=== PATIENT | female | born 1990 | race Caucasian/White ===

== ENCOUNTER → 2020-02-26 11:12 | Outpatient (CLI) | payer BC, SELFPAY ==
[2020-02-27 08:37] LABS: Strep Grp B PCR NEG for Grp B Strep
== END ==
PROVIDERS: PCP Family Medicine; Visit Provider Family Medicine
DX: Z34.90 Encounter for supervision of normal pregnancy, unspecified, unspecified trimester (principal); Z3A.36 36 weeks gestation of pregnancy
CPT/HCPCS: 87653

== ENCOUNTER → 2020-03-02 11:37 | Outpatient (CLI) | payer BC, SELFPAY ==
--- NOTE | 2020-03-02 11:42 | DI.US.S_ITS ---
PROCEDURE: US OB LIMITED INDICATIONS: growth scan, size << dates OUTSIDE/PRIOR DATING DATA: Last menstrual period (LMP): 06/20/2019. LMP-based estimated date of delivery (SE): 03/26/2020. First dating scan (date and location): 03/02/2020. Estimated date of delivery (SE) from first dating scan: 03/29/2020. TECHNIQUE: Real-time scanning was performed of the fetus, with image documentation and biometric measurements. Endovaginal scanning: Not performed COMPARISON: None. FINDINGS: General: A single living intrauterine gestation is present. Presentation: Vertex Placenta: Placental position is anterior, without previa. Amniotic fluid index: 15.7 cm, normal range is 5-24 cm. heart rate: 139 beats per minute. Maternal cervical canal: 3.3 cm long. Normal lower limit is 2.5 cm. biometrics: Biparietal diameter: 8.93 centimeters, 36 weeks, 1 day Head circumference: 32.37 cm, 36 weeks, 4 days Abdominal circumference: 29.8 cm, 33 weeks, 6 days Femur length: 7.4 cm, 37 weeks, 6 days Estimated gestational age from initial scan: 36 weeks, 1 day Composite gestational age from present scan: 36 weeks, 1 day Estimated weight and percentile: 2695 grams, 26 percent. Measurement variability for biometric dating: +/- 7 days from 14 weeks to 15 weeks 6 days gestation, +/- 10 days from 16 weeks to 21 weeks 6 days gestation, +/- 2 weeks from 22 weeks to 27 weeks 6 days gestation, +/- 3 weeks for 28 weeks gestation or later. weight reference: 4500 g or EFW >90/95% is considered macrosomia or large for gestational age. EFW <10% is small for gestational age. EFW 5% or less is considered intra-uterine growth restriction. Other: Not applicable. IMPRESSION: 1. Single live intrauterine with fetus in vertex presentation. heart rate is 139 beats per minute. Normal amount of amniotic fluid. Normal cervical length. 2. Estimated gestational age is 36 weeks, 1 day. Normal growth. Dictated by: Osiel Ball M.D. on 03/02/2020 at 15:06 Approved by: Osiel Ball M.D. on 03/02/2020 at 15:08
== END ==
PROVIDERS: PCP Family Medicine; Referring Provider Family Medicine; Visit Provider Family Medicine
DX: O26.843 Uterine size-date discrepancy, third trimester (principal); Z3A.36 36 weeks gestation of pregnancy
CPT/HCPCS: 76815

== ENCOUNTER 2020-03-31 07:22 | Inpatient (IN) | payer BC, SELFPAY ==
[2020-03-31 08:13] LABS: Add Manual Diff / Slide Review NO; Basophils Absolute Auto 0 /uL (0-100); Basophils Percent Auto 0.1 % (0-2); Eosinophils Absolute Auto 0 /uL (0-450); Eosinophils Percent Auto 0.1 % (2-4); Hematocrit 40.7 % (36-46); Hemoglobin 13.4 g/dL (12.0-16.0); Lymphocytes Absolute Auto 2100 /uL (1100-4500); Lymphocytes Percent Auto 10.6 % (25-40); Mean Corpuscular Hemoglobin 29.9 PG (26-34); Mean Corpuscular Volume 90.6 fL (80-100); Monocytes Absolute Auto 900 /uL (0-900); Monocytes Percent Auto 4.5 % (3-14); Neutrophils Absolute Auto 17000 /uL (1500-7000); Neutrophils Percent Auto 84.7 % (50-75); Platelet Count 177 X10^3/uL (150-400); Red Blood Cell Count 4.49 X10^6/uL (4.0-5.2); Red Cell Distribution Width 14.1 % (11.6-14.8); White Blood Cell Count 20.1 X10^3/uL (4.5-11.0)
[2020-03-31] MEDS: OXYTOCIN 10 UNIT/ML VIAL 20 UNIT (08:20)
--- NOTE | 2020-03-31 09:31 | P.HPOB_ITS ---
OB HPI Date/Time Date of admission: 03/31/20 Date Patient Seen: 03/31/20 Time Patient Seen: 07:45 History of Present Condition Chief complaint: Labor & Delivery : 2 Para: 1 Estimated Date of Delivery: 03/26/20 Estimated Gestational Age (weeks): 49w5d Narrative: Keyanna Winslow is a 30 year old at 40w5d who presented with regular painful contractions. Pt reports contractions started around 2am, increasing in frequency and intensity since then. She denies any LOF or significant vaginal bleeding. She has been feeling the baby move regularly. History of Present care: good care, initiated at week # (9) and pounds weight gain (39) Dating criteria: LMP confirmed by 1st trimester US Ultrasounds: normal 1st trimester US and normal mid trimester US Obstetrical complications: none Medical complications: none Preadmission Labs Blood type: A (+) positive -: Antibody screen: negative, GBS status: negative, HBsAG: negative, HIV: negative and RPR/VDLR: negative -: Rubella: immune HCT: 39.6 PAP: Normal 1 hr GTT: 87 Prior (ies) History: 04/15/17 - at 39w6d, 7lb0.6oz male, Ethan Evaluation Evaluation Baseline heart rate: 120 Variability: Moderate (11-25) monitor accelerations: Present monitor decelerations: Absent Contraction Frequency (minutes): 3 Uterine Contraction Intensity: Strong/Firm Cervical dilation (cm): 10 Cervical effacement (%): 100 station: -1 Laboratory results: Laboratory Tests 03/31/20 03/31/20 07:30 07:30 WBC 20.1 H RBC 4.49 Hgb 13.4 Hct 40.7 MCV 90.6 MCH 29.9 MCHC 33.0 RDW 14.1 Plt Count 177 Neut % (Auto) 84.7 H Lymph % (Auto) 10.6 L [place] % (Auto) 4.5 Eos % (Auto) 0.1 L Baso % (Auto) 0.1 Neut # (Auto) 24372 H Lymph # (Auto) 2100 [place] # (Auto) 900 Eos # (Auto) 0 Baso # (Auto) 0 Blood Type A Positive Antibody Screen Negative Comments: AROM performed with production of clear fluid. [facility] Medical History (Updated 02/18/20 @ 14:02 by Kristina Chavez RN) (spontaneous vaginal delivery) (Acute ~04/15/17) Surgical History (Updated 02/18/20 @ 16:33 by Kristina Chavez RN) [place] teeth extracted (Acute ~2005) Family History (Updated 02/18/20 @ 14:25 by Kristina Chavez RN) Mother Hypertension Father No problems noted. Grandmother No problems noted. Grandfather Dementia Grandmother Hypertension Grandfather No problems noted. Sister No problems noted. 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 ) occupational status: unemployed (since move back to [facility] from [place]) current occupational exposures/hazards: Yes special robbie needs: No Smoking Status: Never smoker second hand exposure: No alcohol intake: former (pre- : X 2 standard drinks/week) substance use type: does not use Meds Home Medications and Allergies Home Medications Medication Instructions Recorded Confirmed Type prenat.vits,scottie,msf-elik-qpgvf 1 tab PO DAILY 02/18/20 02/18/20 History Allergies Allergy/AdvReac Type Severity Reaction Status Date / Time amoxicillin Allergy Intermediate Hives : Verified 02/18/20 14:14 Patient was a baby - Unknownother reaction Exam Narrative Exam Narrative: Gen: NAD, uncomfortable with contractions in bed CV: RRR, no murmurs Resp: clear to auscultation bilaterally Abd: soft, gravid, nondistended, nontender Ext: no edema Objective Labs Result Diagrams: 03/31/20 07:30 Labs: Laboratory Results - last 24 hr 03/31/20 03/31/20 07:30 07:30 WBC 20.1 H RBC 4.49 Hgb 13.4 Hct 40.7 MCV 90.6 MCH 29.9 MCHC 33.0 RDW 14.1 Plt Count 177 Neut % (Auto) 84.7 H Lymph % (Auto) 10.6 L [place] % (Auto) 4.5 Eos % (Auto) 0.1 L Baso % (Auto) 0.1 Neut # (Auto) 54159 H Lymph # (Auto) 2100 [place] # (Auto) 900 Eos # (Auto) 0 Baso # (Auto) 0 Blood Type A Positive Antibody Screen Negative Assessment and Plan Assessment and Plan Assessment and Plan narrative: 30yo at 40w5d presenting in active labor. Rh positive, GBS negative. - Expectant management, anticipate - GBS negative, no prophylaxis indicated - FHT reassuring - Natural methods for pain control
--- NOTE | 2020-03-31 09:31 | PM.OBPRVD ---
Labor & Delivery Delivery date: 03/31/20 Estimated blood loss (mL): 250 Anesthesia type: None Complications: None Narrative: PROCEDURE: at 40w5d presented in active labor and was admitted to Labor and Delivery. The patient progressed through the 1st stage over 5.5 hours. Pain was controlled with natural methods. AROM was performed when the pt was fully dilated with production of clear fluid. The patient progressed through the 2nd stage over 34 minutes and delivered a viable female with APGARs 9/9 at 8:14 via without complications. The cord was clamped and cut after it stopped pulsating. The perineum and vagina were inspected with 2nd degree perineal laceration repaired with 3-O Chromic. PREPROCEDURE DIAGNOSIS: Intrauterine at 40w5d GBS negative RH positive POSTPROCEDURE DIAGNOSIS: Intrauterine at 40w5d, delivered Same as preprocedure PROCEDURE: Spontaneous vaginal delivery INDUCTION: No LABOR AUGMENTATION: AROM ROM APPEARANCE: Clear BABY A DELIVERY TIME: 8:14 BABY A OUTCOME: Viable BABY A SEX: Male BABY A WEIGHT: 7lb5.3oz BABY A PRESENTATION: Vertex BABY A POSITION: OA BABY A NUCHAL CORD: None BABY A # CORD VESSELS: 3 BABY A CORD GASES OBTAINED: No PLACENTA DELIVERY TIME: 8:20 PLACENTAL DELIVERY TYPE: Spontaneous PLACENTA APPEARANCE: Intact Baby 1: Infant gender: Female score (1 min): 9 score (5 min): 9 Plan for aftercare: Normal care
[2020-03-31] MEDS: IBUPROFEN 600 MG TABLET PO ×3 (10:39→22:14)
[2020-03-31] MEDS: ACETAMINOPHEN 325 MG TABLET 650 MG PO ×2 (10:39→17:05)
[2020-03-31 11:15] VITALS: BP 120/76
[2020-03-31 14:34] LABS: COVID19 -Nasal RAPID Negative (Negative)
[2020-03-31] MEDS: DERMOPLAST SPRAY 20% 60 ML 1 SPRAY TOP (17:05)
[2020-04-01] MEDS: IBUPROFEN 600 MG TABLET PO ×2 (05:06→12:40)
--- NOTE | 2020-04-01 11:05 | PM.OBDS.1 ---
Discharge Providers Provider Date of admission: 03/31/20 07:22 Discharge Date: 04/01/20 Primary care physician: Jolie Villalta MD Consults: 04/01/20 09:30 Consult to Component Assembler Routine Comment: Discharge provider: Jolie Villalta MD Summary Hospital Course Date Patient Seen: 04/01/20 Time Patient Seen: 11:05 Procedures: Spontaneous vaginal delivery Hospital Course: The patient presented in active labor. She arrived fully dilated. She had a spontaneous vaginal delivery of a viable baby girl at 8:14 a.m. on 03/31/2020. A second-degree laceration was then repaired. She had no complications with delivery. , there were no complications. At the time of discharge he was voiding, ambulating, passing flatus without difficulty. Her lochia was decreasing appropriately. She was breast-feeding with good latch. Her pain was adequately controlled with ibuprofen. She will follow up in clinic for her 6 week check. She would like an IUD for contraception. Peripartum Data Infant Delivery Method: Natural Vaginal Laceration Description: Perineal - 2nd Degree Episiotomy description: None Procedures: Spontaneous vaginal delivery complications: none Moodus 1: Gender: Female Disposition of : home Status at Discharge Cognitive/behavioral status at discharge: oriented Functional status at discharge: independent ambulation Overall status at discharge: patient is progressing back to baseline Time Spent with Patient Time attestation: Total time spent providing and/or coordinating discharge services: Objective Labs Result Diagrams: 03/31/20 07:30 Labs: Laboratory Results - last 24 hr 03/31/20 10:37 COVID-19 PCR Negative Exam Narrative Exam Narrative: General: No acute distress, sitting comfortably in bed, appears well CV: Regular rate and rhythm, no murmurs Respiratory: Clear to auscultation bilaterally Abdomen: Soft, nondistended, normoactive bowel sounds, fundus firm at the umbilicus Extremities: No edema Discharge Plan Discharge Plan Patient Disposition: Home Discharge orders & Medications Prescriptions: Continued prenat.vits,scottie,dpm-xaaw-kdfuk Tablet 1 tab PO DAILY RF: 0 Follow up/Referrals: Jolie Villalta MD [Primary Care Provider] - 6 Weeks Diet/Activity/Treatments Diet: Diet as Tolerated and Regular Skin/Wound/Dressing Care Report to your healthcare provider any signs of infection, such as:: chills, fever, increased pain and unusual drainage Visit Report/Discharge Packet Instructions: DI for Labor and Delivery, Vaginal Visit Report Forms: Patient Portal/API, Stroke Signs & Symptoms Discharge Data Primary Care Provider: Jolie Villalta
[2020-04-01 11:54] VITALS: BP 118/76; PULSE 87; RESP 14; TEMP 37.2
== END 2020-04-01 14:06 | disposition home or self-care (01) | DRG 807 ==
PROVIDERS: Admitting Provider Family Medicine; PCP Family Medicine; Referring Provider Family Medicine; Visit Provider Family Medicine
DX: O70.1 Second degree perineal laceration during delivery (principal); Z37.0 Single live birth; Z3A.40 40 weeks gestation of pregnancy; Z11.59 Encounter for screening for other viral diseases
CPT/HCPCS: 59050; 59410; 85025; 86850; 86900; 86901; 87635; G0379; J2590

== ENCOUNTER → 2021-10-12 16:11 | Outpatient (CLI) | payer OTHER, SELFPAY ==
[2021-10-12 18:56] LABS: Urine N gonorrhoeae NOT DETECTED
[2021-10-12 19:27] LABS: Urine Chlamydia NOT DETECTED
== END ==
PROVIDERS: PCP Family Medicine; Visit Provider Family Medicine
DX: Z30.430 Encounter for insertion of intrauterine contraceptive device (principal)
CPT/HCPCS: 87491; 87591

== ENCOUNTER → 2024-11-18 13:25 | Outpatient (CLI) | payer OTHER, SELFPAY ==
[2024-11-18 15:02] LABS: HCG Quantitative /Beta subunit 61621 mIU/mL
== END ==
PROVIDERS: PCP Family Medicine; Referring Provider Family Medicine; Visit Provider Family Medicine
DX: Z34.90 Encounter for supervision of normal pregnancy, unspecified, unspecified trimester (principal)
CPT/HCPCS: 36415; 84702

== ENCOUNTER → 2024-11-20 12:17 | Outpatient (CLI) | payer OTHER, SELFPAY ==
[2024-11-20 14:02] LABS: HCG Quantitative /Beta subunit 52651 mIU/mL
== END ==
PROVIDERS: PCP Family Medicine; Referring Provider Family Medicine; Visit Provider Family Medicine
DX: Z32.00 Encounter for pregnancy test, result unknown (principal)
CPT/HCPCS: 36415; 84702

== ENCOUNTER → 2024-11-26 12:39 | Outpatient (CLI) | payer OTHER, SELFPAY ==
[2024-11-26 15:54] LABS: HCG Quantitative /Beta subunit 33451 mIU/mL
== END ==
PROVIDERS: PCP Family Medicine; Referring Provider Family Medicine; Visit Provider Family Medicine
DX: Z32.00 Encounter for pregnancy test, result unknown (principal)
CPT/HCPCS: 36415; 84702

== ENCOUNTER → 2024-12-12 09:30 | Outpatient (CLI) | payer OTHER, SELFPAY ==
[2024-12-12 10:40] LABS: HCG Quantitative /Beta subunit 6517.1 mIU/mL
== END ==
PROVIDERS: PCP Family Medicine; Referring Provider Family Medicine; Visit Provider Family Medicine
DX: Z34.90 Encounter for supervision of normal pregnancy, unspecified, unspecified trimester (principal)
CPT/HCPCS: 36415; 84702

== ENCOUNTER → 2025-01-02 16:46 | Outpatient (CLI) | payer OTHER, SELFPAY ==
[2025-01-02 18:41] LABS: HCG Quantitative /Beta subunit 1254.6 mIU/mL
== END ==
PROVIDERS: PCP Family Medicine; Referring Provider Family Medicine; Visit Provider Family Medicine
DX: O02.1 Missed abortion (principal)
CPT/HCPCS: 36415; 84702

== ENCOUNTER → 2025-02-07 11:20 | Outpatient (CLI) | payer OTHER, SELFPAY ==
[2025-02-07 13:10] LABS: HCG Quantitative /Beta subunit 96.54 mIU/mL
== END ==
PROVIDERS: PCP Family Medicine; Referring Provider Family Medicine; Visit Provider Family Medicine
DX: O03.9 Complete or unspecified spontaneous abortion without complication (principal)
CPT/HCPCS: 36415; 84702

== ENCOUNTER → 2025-02-11 12:47 | Outpatient (CLI) | payer OTHER, SELFPAY ==
--- NOTE | 2025-02-11 12:48 | DI.US.S_ITS ---
PROCEDURE: US PELVIC COMPLETE INDICATIONS: persistent vaginal bleeding TECHNIQUE: Real-time scanning was performed of the pelvic organs, with image documentation. Additional endovaginal scanning was necessary due to incomplete visualization of the adnexal and endometrial structures by transabdominal scanning. COMPARISON: None. FINDINGS: Uterus: Uterus is retroverted and normal in size at 11.8 x 7.9 x 6.1 cm. The myometrium is homogeneous. Myometrium appears hyperemic. The endometrium is not well measured. Endometrial canal is fluid-filled. No fibroids. Ovaries: The right ovary measures 2.5 x 2.1 x 1.7 cm, with a calculated ovarian volume of 5 cc. The left ovary measures 3.3 x 3 x 1.9 cm, with a calculated ovarian volume of 10 cc. The ovaries have a normal sonographic appearance. Less than 12 follicles can be seen in each ovary. No adnexal masses are seen. Other: Trace free fluid in the pelvis. IMPRESSION: 1. Endometrial canal is fluid-filled. 2. Myometrium appears hyperemic. 3. No significant ovarian cysts. We strive to produce accurate, complete, and clear reports of imaging services. To assist us in improving patient care, this report was composed using standard report templates and voice recognition software. Therefore, it may contain abnormal punctuation, insertions and/or omissions. Occasional wrong-word or sound-alike substitutions may occur. Though we review the report and make efforts to correct it, we do recommend that the report be read carefully in proper context to recognize any text inaccuracies. Dictated by: Suleiman Awad M.D. on 02/12/2025 at 15:12 Approved by: Suleiman Awad M.D. on 02/12/2025 at 15:15
== END ==
PROVIDERS: PCP Family Medicine; Referring Provider Family Medicine; Visit Provider Family Medicine
DX: O02.1 Missed abortion (principal)
CPT/HCPCS: 76830; 76856

== ENCOUNTER → 2025-03-12 16:24 | Outpatient (CLI) | payer OTHER, SELFPAY ==
[2025-03-12 17:25] LABS: Add Manual Diff / Slide Review NO; Hematocrit 38.9 % (36-46); Hemoglobin 13.1 g/dL (12.0-16.0); Lymphocytes Absolute Auto 2000 /uL (1100-4500); Mean Corpuscular HGB Conc 33.8 % (30-36); Mean Corpuscular Hemoglobin 29.0 PG (26-34); Mean Corpuscular Volume 85.7 fL (80-100); Platelet Count 276 X10^3/uL (150-400)
[2025-03-12 18:10] LABS: HCG Quantitative /Beta subunit 10.25 mIU/mL
== END ==
PROVIDERS: PCP Family Medicine; Referring Provider Obstetrics & Gynecology; Visit Provider Obstetrics & Gynecology
DX: O03.4 Incomplete spontaneous abortion without complication (principal)
CPT/HCPCS: 36415; 84702; 85025

== ENCOUNTER 2025-03-17 06:51 | Day surgery (SDC) | payer OTHER, SELFPAY ==
[2025-03-13 11:51] VITALS: BMI 21.1
[2025-03-17] VITALS (7 sets, daily range): BP systolic 108–125; BP diastolic 53–75; PULSE 73–105; RESP 16–22; TEMP 36.4–36.6; O2SAT 99–100
--- NOTE | 2025-03-17 | PATH_ITS ---
[facility] Accession Number: [id number] No. of containers..01 Tissue . 01 Material submitted: . product of conception - PRODUCTS OF CONCEPTION . 01 Diagnosis: SPECIMEN DESIGNATED PRODUCTS OF CONCEPTION: Fragments of endometrium with breakdown changes. Decidualized stromal tissue fragments admixed with blood clots. See comment. MRV 03/28/2025 1306 Local . 01 Comment: Products of conception (chorionic villi) are not identified. . 01 Electronically signed: . Lexi Liang MD, Pathologist NPI- [id number] . 01 Gross description: . The specimen is received in formalin with two patient identifiers and products of conception and consists of a 9.0 x 4.5 x 1.5 cm aggregate of clotted blood admixed with fibromembranous tissue. No distinct villous tissue or tissue is identified. Drop Hammer Pile Driver Operator sections are submitted in cassettes A1-A3 (approximately 20% of the specimen is submitted). After initial examination additional tissue is submitted in A4-A8. ([id number]) /MRV 04/02/2025 1537 Local . 01 Pathologist provided ICD-10: O02.1 . 01 CPT . 670311 Specimen Comment: A courtesy copy of this report has been sent to [facility] Pathology Performed at: [address] [address], [place], [place] [id number] MD Jr Oleary MD Phone: [phone]
[2025-03-17] MEDS: LACTATED RINGERS 1,000 ML 42 ML IV (07:31)
[2025-03-17] MEDS: ACETAMINOPHEN 325 MG TABLET 975 MG PO (07:33)
--- NOTE | 2025-03-17 07:41 | PM.PREOP ---
Pre-operative Note COVID-19 COVID-19 status: Not tested Interval Note History & Physical reviewed/Exam performed by Physician: Yes Changes to H&P: No ASA Class (for procedural sedation): II
[2025-03-17] MEDS: DOXYCYCLINE HYCLATE 100 MG TABLET 200 MG PO (07:44)
--- NOTE | 2025-03-17 08:08 | SUR.OPER ---
Lithotomy on padded OR bed, head on pillow, arms secured on padded arm boards at <90 degrees abduction. Legs secured in padded yellow fins stirrups. Safety straps across abdomen.
[2025-03-17] MEDS: METHYLERGONOVINE 0.2 MG/ML VIAL IM (08:17)
--- NOTE | 2025-03-17 08:52 | P.OP_ITS ---
Operative Date/Time/Diagnoses Date of procedure: 03/17/25 Time of procedure: 08:52 Pre-op diagnosis: Retained products of conception after miscarriage Post-op diagnosis: same Procedure & Clinicians Procedure: Suction dilation and curettage Same procedure(s) as scheduled: Yes Indications: Patient is a 35yo presented as referral to my clinic due to concern for retained products of conception. Patient had a in October 2024 and US did not show an IUP or ectopic . She was bleeding and her hcg dropped from 6500 to 2000 so she was presumed to have a completed SAB. Patient then continued to bleed on and off and contacted her provider in January- she had an US completed which showed fluid within endoemtrial canal with hyperemeic myometrium and her hcg was persistently positive- 96. She was then referred to me but due to scheduling issues and patient went out of town she was seen in my office 03/12/25. Pelvic US noted fluid within the endometrial canal which may represent an irregular gestational sac and hypervascularity surrounding this area consistent with retained products of conception. hcg- 10. Patient counseled regarding findings c/w retained products of conception and recommendation to proceed with suction D&C. All questions answered and pateint desires to proceed. Surgeon: Kaya Amato Assisted?: No Anesthesia Type: General and MAC +/- Operative Notes Findings: moderate amounts of tissue removed from uterine cavity. There is area on the anterior uterine wall that is concerning for possible retained tissue. Specimen(s): other (products of conception) Applied: none Estimated Blood Loss (mL): 300 Blood products transfused: none Procedure in detail: Procedure: ?The patient was taken to the operating room where general anesthesia was administered without difficulty. The patient was prepped and draped in usual sterile fashion in lithotomy position with yellow fin stirrups. SCDs were placed. A weighted speculum was placed. The anterior lip of the cervix was gras ped with a single tooth tenaculum. The cervix was gradually dilated with hegar dilators. Notably, even with just starting to dilate the cervix there was brisk bright red bleeding from the uterus. A 9-mm suction curettage was advanced into the uterine cavity without difficulty and was used to suction contents of the uterus. There was moderate tissue removed. Following removal of the products of conception, a sharp curette was advanced into the uterine cavity and was used to scrape the four boss of the uterus. There was a gritty texture on the lateral sides but the anterior wall notably soft suspicious for retained tissue. The suction curette was then reintroduced in order to remove this area but after removal of the sution curette the sharp curette was used and still did not have a gritty texture. A 10mm suction curette was then introduced to see if a larger suction would remove the tissue. With each curettage with suction or sharp the patient had brisk bright red bleeding. Patient given tranexamic acid and methergine during the case to manage bleeding. A bedside ultrasound was used and initially noted areas of debris and clot within the endometrial canal. The areas of debris and hyperechoic tissue were removed with suction. Even after removal of tissue the endometrial canal would fill up with blood but this did stabilize. Considering that with every attempt at curettage patient would bleed further and unable to remove any additional tissue the procedure was concluded. All instruments were removed. Hemostasis was visualized and patient having only light bleeding at the end of case. The patient was stable at the completion of the procedure. Sponge, lap, and instrument counts were correct. Plan to follow up the pathology results and will follow patient's hcg and bleeding pattern postop. If follow up US shows evidence of persistent retained tissue then patient may need hysteroscopy for visualization and resection of retained tissue. Complications: none Post-operative Condition: stable Disposition: same day surgery
== END 2025-03-17 09:55 | disposition home or self-care (01) ==
PROVIDERS: PCP Family Medicine; Referring Provider Family Medicine; Visit Provider Obstetrics & Gynecology
PROC: (CPT 58120; principal; 2025-03-17 07:45)
DX: O02.1 Missed abortion (principal)
CPT/HCPCS: 59820; J1100; J1885; J2210; J2250; J2405; J2704; J3010; J7120

== ENCOUNTER → 2025-04-03 13:09 | Outpatient (CLI) | payer OTHER, SELFPAY ==
[2025-04-03 15:07] LABS: HCG Quantitative /Beta subunit < 2.39 mIU/mL
== END ==
PROVIDERS: PCP Family Medicine; Referring Provider Obstetrics & Gynecology; Visit Provider Obstetrics & Gynecology
DX: Z30.430 Encounter for insertion of intrauterine contraceptive device (principal); O03.4 Incomplete spontaneous abortion without complication
CPT/HCPCS: 36415; 84702